=== PATIENT | male | born 1970 | race Caucasian/White ===

== ENCOUNTER → 2017-10-05 | Day surgery (SDC) | payer BC ==
[2017-10-03 14:18] VITALS: BMI 26.4
--- NOTE | 2017-10-04 09:50 | HP ---
HISTORY AND PHYSICAL CHIEF COMPLAINT: Left knee pain. 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 He is having medial pain, stiffness, and giving way. He does not recall a specific injury, recently. However, his symptoms are worsening. He has tried medications and an injection with only partial temporary relief. PAST MEDICAL HISTORY: Significant for hypertension. PAST SURGICAL HISTORY: Significant for right knee arthroscopy. CURRENT ALLERGIES: None. He denies drug allergies. FAMILY HISTORY: Significant for heart disease and diabetes. SOCIAL HISTORY: Significant for social alcohol use. He also admits to 1/2 pack per day tobacco use. 16 REVIEW OF SYSTEMS: Otherwise reviewed and is noncontributory. PHYSICAL EXAMINATION: The patient is approximately 6 foot tall, 194 pounds of mesomorphic habitus. HEENT exam is nonfocal. Neck is supple. He has painless passive motion of his left hip. Straight leg raise is negative. Active motion left knee -6 to 135 degrees of flexion. He is tender about the medial joint line. He has a trace effusion. Collaterals are stable, Sandhya is negative, Rex's elicits medial pain. His distal neurovascular exam appears intact in the left lower extremity. MRI report for left knee from 09/28/2017 shows a tear involving the posterior horn of the medial meniscus. IMPRESSION: Left knee internal derangement with symptomatic medial meniscal tear. RECOMMENDATION: I talked to the patient at length regarding his treatment options. He is having significant pain and mechanical symptoms despite conservative measures. After a thorough discussion, he opts to proceed with surgery. We will plan to proceed with arthroscopic evaluation with probable partial medial meniscectomy in addition to possible medial femoral chondrectomy. We will likely perform that as an outpatient procedure. MMODL / IJN: [id number] /
[~2017-10-05] MED LIST: DEXAMETHASONE SOD PHOSPHATE 10 MG/ML 1 ML VIAL IV ONE; EPINEPHrine (PF) 1 ML in SODIUM CHLORIDE 0.9% IRRIGATIO 3,000 ML IRRIGATION ONE; HYDROcodone/APAP 7.5-325MG 1 EACH TAB PO ONE; KETOROLAC 30 MG/ML 1 ML VIAL ONE; LACTATED RINGERS 1,000 ML IV ONE; LACTATED RINGERS 1,000 ML IV SCH; LIDOCAINE 1% 20 ML VIAL (10MG/ML) FOR IV START INTRADERMA PRN; LIDOCAINE 1% INJ 10MG/ML (20 ML MDV) ONE; MIDAZOLAM 2 MG/2 ML VIAL IV PRN; MIDAZOLAM 2 MG/2 ML VIAL ONE; ONDANSETRON 4 MG/2 ML VIAL IVP ONE; PROPOFOL 10 MG/ML 20 ML VIAL IV ONE; SCOPOLAMINE 1.5MG/72HR PATCH TRANSDERM ONE; ceFAZolin IN SWFI 2 GM/20 ML SYRINGE IVP ONE; diphenhydrAMINE 50 MG/ML 1 ML VIAL IVP ONE; ePHEDrine SULFATE/0.9% NACL/PF 50 MG/5 ML SYRINGE IV ONE; fentaNYL (PF) 50 MCG/ML 2 ML AMP ONE
[2017-10-05] MEDS: HYDROmorphone 0.5 MG/0.5 ML SYRINGE IVP PRN ×4 (14:00→14:23)
--- NOTE | 2017-10-05 14:01 | P.OP ---
Date of Procedure: 10/05/17 Preoperative Diagnosis: Left knee internal derangement Postoperative Diagnosis: Left knee posterior medial meniscal tear/grade 2 chondral injury posterior medial femoral condyle/large medial patellofemoral plica Procedure(s) Performed: Left knee arthroscopic partial medial meniscectomy/medial femoral chondrectomy/ plica resection Anesthesia: CITLALI Surgeon: Fabián Pandey Estimated Blood Loss (ml): 10 Pathology: none sent Condition: stable Disposition: PACU Indications for Procedure: The patient's a 47-year-old male who presents with progressive left knee pain and mechanical symptoms for the past 4 months despite conservative measures. A discussion of the risks and benefits of operative intervention versus continued conservative measures was made with the patient. He opted to proceed with surgery. Operative risks to include infection, neurovascular injury, development of blood clots, possible incomplete resolution of symptoms, possible persistence of symptoms and need for subsequent procedures was discussed. Informed consent was obtained. Operative Findings: As below Description of Procedure: The patient was brought to the operating room, and after induction of general anesthesia examined the left knee. Collaterals were stable, Sandhya was negative, and posterior drawer was negative. The left lower extremity was prepped and draped in normal fashion. A superior lateral portal was made through a 3 mm skin incision superior and lateral to the patella. This was used for outflow. A lateral portal was made through a 5 millimeter incision lateral to the patella tendon above the joint line. Diagnostic arthroscopy was performed. A medial portal was made through a similar incision medial to the patellar tendon above the joint line. On inspection medial compartment, he was noted have a complex tear involving the posterior horn of the medial meniscus in the white-white junction. This was not amenable to repair. This was debrided back to stable base with straight baskets and a motorized shaver. The edges were contoured. A corresponding grade 2 chondral injury was noted involving the posterior lateral portion of the medial femoral condyle. There was a loose chondral flap debrided back to stable base with a motorized shaver. On inspection of the notch, the anterior cruciate ligament appeared to be intact. On inspection of the lateral component, no significant meniscal or articular cartilage pathology was noted. On inspection patellofemoral articulation, a large medial plica was noted impinging on the medial femoral condyle through the arc of motion. This was debrided with a motorized shaver. The gutters were clear of debris. The knee was then thoroughly irrigated. The portals were closed with Steri-Strips. A sterile dressing was applied in addition to a compression stocking. The patient was awoken from general anesthesia and transferred to recovery room in good condition. Blood loss was estimated at 10 mL. No complications were incurred.
[2017-10-05 14:12] VITALS: TEMP 96.5
[2017-10-05 15:41] VITALS: BP 127/78; PULSE 100; RESP 18
== END | disposition home or self-care (01) ==
LOC: OR 12:24
PROVIDERS: ATTEND Orthopaedic Surgery
DX: S83.242A Other tear of medial meniscus, current injury, left knee, initial encounter (principal); S83.32XA Tear of articular cartilage of left knee, current, initial encounter; X58.XXXA Exposure to other specified factors, initial encounter; M67.52 Plica syndrome, left knee; I10 Essential (primary) hypertension; F17.200 Nicotine dependence, unspecified, uncomplicated; Z79.1 Long term (current) use of non-steroidal anti-inflammatories (NSAID); Z79.899 Other long term (current) drug therapy; Z91.030 Bee allergy status; Z91.013 Allergy to seafood
CPT/HCPCS: 29881; J2250; J1200; J1100; J0690; J2405; J0171; J2001; J3010; J1885; J2704; J1170